=== PATIENT | male | born 2000 | race Caucasian/White ===

== ENCOUNTER 2018-05-02 23:22 | Emergency (ER) | payer OTHER ==
[~2018-05-02] VITALS: Ht 167.6 cm; Wt 70.3 kg
[~2018-05-02 23:22] MED LIST: ACETAMINOPHEN-1 EAC1 PO; AMOXICILLIN875 MG PO; AURALGAN EAR DR14 ML OT; NOHOMEMEDICATIONS; ZOFRAN4 MG PO
[2018-05-02 23:52] VITALS: BP 109/64
== END 2018-05-02 23:52 | disposition home or self-care (01) ==
LOC: M.ERS 23:22
DX: S61.213A Laceration without foreign body of left middle finger without damage to nail, initial encounter (principal); F17.210 Nicotine dependence, cigarettes, uncomplicated; W26.8XXA Contact with other sharp object(s), not elsewhere classified, initial encounter; Y93.89 Activity, other specified; Y92.89 Other specified places as the place of occurrence of the external cause; Y99.8 Other external cause status

== ENCOUNTER 2019-06-21 14:38 | Emergency (ER) | payer OTHER ==
[~2019-06-21] VITALS: Ht 167.6 cm; Wt 78.5 kg
[2019-06-21 15:21] LABS: ABSOLUTE BASOPHILS 0.1 thou/uL (0.0-0.2); ABSOLUTE EOSINOPHILS 0.1 thou/uL (0.0-0.7); ABSOLUTE LYMPHOCYTES 0.7 thou/uL (0.8-5.3); ABSOLUTE MONOCYTES 1.1 thou/uL (0.0-1.2); ABSOLUTE NEUTROPHILS 9.7 thou/uL (1.6-8.1); BASOPHILS 0.5 %; EOSINOPHILS 1.1 %; HEMOGLOBIN 16.3 gm/dL (14.0-18.0); LYMPHOCYTES 5.9 %; MCHC 33.9 g/dL (28.0-37.0); MCV 85.8 fL (80.0-100.0); MONOCYTES 9.1 %; MPV 8.8 fl. (7.2-11.1); NUCLEATED RBCS 0 /100WBC; PLATELET COUNT* 209 thou/uL (150-400); POLYS 83.4 %; WBC 11.6 thou/uL (4.0-11.0)
[2019-06-21 15:39] LABS: CREATININE 0.9 mg/dL (0.6-1.3); POTASSIUM 4.2 mmol/L (3.5-5.1)
[2019-06-21 15:43] LABS: TOTAL BILIRUBIN 0.6 mg/dL (<0.1-1.0); TOTAL PROTEIN 7.7 g/dL (6.4-8.2)
[2019-06-21] MEDS ORDERED: ZOFRAN4 MG PO (15:50)
[2019-06-21] MEDS ORDERED: BENTYL 20 MG TA20 M1 PO (15:50)
[2019-06-21 15:57] VITALS: BP 101/51
== END 2019-06-21 15:58 | disposition home or self-care (01) ==
LOC: M.ERS 14:38
PROVIDERS: Emergency Medicine
DX: K52.9 Noninfective gastroenteritis and colitis, unspecified (principal); K31.84 Gastroparesis; F17.210 Nicotine dependence, cigarettes, uncomplicated

== ENCOUNTER 2020-06-03 22:47 | Emergency (ER) | payer OTHER ==
[~2020-06-03] VITALS: Ht 167.6 cm; Wt 70.3 kg
[~2020-06-03 22:47] MED LIST changes: +BENTYL 20 MG TA20 M1 PO
[2020-06-03] MEDS ORDERED: AMOXIL 875 MG875 M1 PO (22:54)
[2020-06-03] MEDS ORDERED: NORCO 5-325 TA1 EAC2 PO (22:54)
[2020-06-03] MEDS ORDERED: HYDROCODON-ACE1 EAC8 PO (23:36)
[2020-06-03] MEDS ORDERED: PERIDEX 0.12%473 M1 SWISH&SPIT (23:36)
[2020-06-03 23:46] VITALS: BP 113/64
== END 2020-06-03 23:47 | disposition home or self-care (01) ==
LOC: M.ERS 22:47
DX: K06.8 Other specified disorders of gingiva and edentulous alveolar ridge (principal); F17.210 Nicotine dependence, cigarettes, uncomplicated

== ENCOUNTER 2021-03-06 19:20 | Emergency (ER) | payer OTHER ==
[~2021-03-06] VITALS: Ht 165.1 cm; Wt 68.0 kg
[~2021-03-06 19:20] MED LIST changes: +AMOXIL 875 MG875 M1 PO; +HYDROCODON-ACE1 EAC8 PO; +NORCO 5-325 TA1 EAC2 PO; +PERIDEX 0.12%473 M1 SWISH&SPIT
[2021-03-06] MEDS ORDERED: NORCO5 PO ×2 (20:27→20:28)
[2021-03-06 20:40] VITALS: BP 116/72
== END 2021-03-06 20:40 | disposition home or self-care (01) ==
LOC: M.ERS 19:20
DX: S62.366A Nondisplaced fracture of neck of fifth metacarpal bone, right hand, initial encounter for closed fracture (principal); F17.210 Nicotine dependence, cigarettes, uncomplicated; W22.01XA Walked into wall, initial encounter; Y93.89 Activity, other specified; Y92.89 Other specified places as the place of occurrence of the external cause; Y99.8 Other external cause status

== ENCOUNTER 2021-04-06 23:33 | Emergency (ER) | payer OTHER ==
[~2021-04-06] VITALS: Ht 165.1 cm; Wt 68.0 kg
[~2021-04-06 23:33] MED LIST changes: +NORCO5 PO
[2021-04-07] MEDS ORDERED: INDOMETHACIN 2525 MG PO (01:31)
[2021-04-07 01:49] VITALS: BP 122/68
--- NOTE | 2021-04-08 10:26 | EKG ---
[place] [address] ELECTROCARDIOGRAM REPORT Name: ELMIRA COMER Room: [facility]#: [id number] Admission: 04/06/21 Attend Phys: Discharge: 04/07/21 Date of : [birth year] Date of Service: 04/06/21 2340 Report #: [id number] THIS REPORT FOR: //name// [facility] ED Test Date: 2021-04-06 Test Time: 23:40:53 Pat Name: ELMIRA COMER Department: Room: Gender: Respiratory Care Specialist: [place] : 2000 Requested By: Sarah Sam Order Number: [id number] Harshil MD: Andres Medina Measurements Intervals [place] Rate: 74 P: 22 VA: 141 QRS: 1 QRSD: 98 T: 31 QT: 385 QTc: 428 Interpretive Statements Sinus rhythm RSR' in V1 or V2, right VCD or RVH No previous ECG available for comparison Electronically Signed On 04-08-2021 10:26:43 CDT by Andres Medina [email or web address] <ELECTRONICALLY SIGNED> By: Andres Medina MD, [facility] 04/08/21 1026 2340 2340 Andres Medina MD, [facility] /EPI
== END 2021-04-07 01:49 | disposition home or self-care (01) ==
LOC: M.ERS 23:33
DX: R07.89 Other chest pain (principal); Z20.822 Contact with and (suspected) exposure to COVID-19; K31.84 Gastroparesis; F17.210 Nicotine dependence, cigarettes, uncomplicated